=== PATIENT | female | born 1990 | race Caucasian/White ===

== ENCOUNTER 2021-11-29 03:48 | Observation (INO) ==
[2021-11-29] MEDS ORDERED: Dextrose 50% Syringe 50 ml 25 GM/50 ML SYRINGE IV PUSH ONE (03:53)
[2021-11-29 04:07] LABS: Hematocrit 40 % (35-47); Hemoglobin 13.4 g/dL (12.0-16.0); Mean Corpuscular HGB Conc 34 g/dL (31-36); Mean Corpuscular Hemoglobin 32 pg (27-31); Mean Corpuscular Volume 94 fL (80-97); Mean Platelet Volume 8.3 fL (7.4-10.4); Platelet Count 299 10^3/uL (150-450); Red Blood Count 4.24 10^6 /uL (3.70-4.87); Red Cell Distribution Width 12 % (10-15); White Blood Count 11.6 10^3/uL (3.5-10.8)
[2021-11-29 04:45] LABS: Anion Gap 15 mmol/L (2-11); Blood Urea Nitrogen 13 mg/dL (6-24); CO2 Carbon Dioxide 23 mmol/L (22-32); Calcium 9.4 mg/dL (8.6-10.3); Chloride 98 mmol/L (101-111); Glucose 283 mg/dL (70-100); Potassium 3.5 mmol/L (3.5-5.0); Sodium 136 mmol/L (135-145); eGFR CKD-EPI 110.2 (>60)
[2021-11-29] MEDS ORDERED: Lactated Ringers 1000 ml BAG 1,000 ML IV ONE (04:48)
[2021-11-29 04:53] LABS: HCG Pregnancy < 0.60 mIU/mL
[2021-11-29 04:57] LABS: RBC Morphology Normal (Normal)
[2021-11-29 05:15] LABS: Magnesium 2.2 mg/dL (1.9-2.7)
[2021-11-29 06:57] LABS: ABS Basophils 0.1 10^3/ul (0-0.2); ABS Eosinophils 0.4 10^3/ul (0-0.6); ABS Lymphocytes 6.4 10^3/ul (1.0-4.8); ABS Monocytes 0.8 10^3/ul (0-0.8); ABS Neutrophils 3.9 10^3/ul (1.5-7.7); Eosinophil % 3.1 %; Lymphocyte % 55.6 %
[2021-11-29] MEDS ORDERED: levETIRAcetam 1000MG IVPREMIX 1,000 MG/100 ML BAG IVPB ONE (07:23)
[2021-11-29] MEDS ORDERED: Lorazepam PYXIS KEY PRN ×2 (07:25→08:38)
[2021-11-29] MEDS ORDERED: LORazepam 2 mg VIAL 1 ml IV PUSH ONE (07:25)
[2021-11-29] MEDS ORDERED: Al Hydrox/Mg Hydrox/Simet LIQ 30 ML UDC PO PRN (08:28)
[2021-11-29] MEDS ORDERED: LORazepam 2 mg VIAL 1 ml IV PUSH PRN (08:38)
[2021-11-30 14:25] VITALS: BP 101/69
== END 2021-11-30 14:00 | disposition home or self-care (01) ==
LOC: ED 03:48 → EDHOLD 03:48 → MEDTELE 11:32
PROVIDERS: ADMIT Internal Medicine; ATTEND Internal Medicine